=== PATIENT | male | born 1970 | race African-American/Black ===

== ENCOUNTER 2020-01-13 20:27 | Emergency (ER) | payer BC ==
[~2020-01-13] VITALS: Ht 162.6 cm; Wt 118.2 kg
[2020-01-13 21:31] VITALS: Ht 162.6 cm; Wt 118.2 kg
[2020-01-13] MEDS ORDERED: COZAAR100 MG PO (21:32)
[2020-01-13 22:57] VITALS: BP 150/93
== END 2020-01-13 22:57 | disposition home or self-care (01) ==
LOC: D.ER 20:27
DX: M79.671 Pain in right foot (principal); W22.8XXA Striking against or struck by other objects, initial encounter; Y93.9 Activity, unspecified; Y92.9 Unspecified place or not applicable; I10 Essential (primary) hypertension